=== PATIENT | male | born 1960 | race Caucasian/White ===

== ENCOUNTER → 2017-03-18 | Outpatient (CLI) | payer OTHER ==
[~2017-03-18] MED LIST: ASPI325T45 PO; ATOR-26 PO; CHN5 PO; CITA10TA4 PO; GLC/500 PO; GLIM2TAB2 PO; LOSA1TAB38 PO; METO50TA16 PO; MULT-506 PO; ZNTT/150 PO
--- NOTE | 2017-03-18 12:10 | DIAGNOSTIC IMAGING REPORT ---
ANKLE BRACHIAL INDEX LIMITED CLINICAL HISTORY: STASIS DERMATITIS OF B/L LEGS COMPARISON STUDY: None. FINDINGS: The bilateral ankle brachial indices measured with the posterior tibial artery was 1.2 and the dorsalis pedis artery was 1.1. IMPRESSION: Bilateral ankle brachial indices measure between 1.1 and 1.2. Electronically signed by: Nadeem Tomlin M.D. 03/18/2017 12:08 PM Dictated Date/Time: 03/18/2017 12:08 PM
== END | disposition home or self-care (01) ==
LOC: C.ULTR 11:26
PROVIDERS: ATTEND Internal Medicine
DX: I87.2 Venous insufficiency (chronic) (peripheral) (principal)